=== PATIENT | male | born 1960 | race American Indian/Alaskan Native ===

== ENCOUNTER 2019-01-10 04:50 | Emergency (ER) | payer BC ==
[2019-01-10 04:55] VITALS: BP 166/85
[2019-01-10] MEDS ORDERED: DELTASONE PO ONE (05:14)
[2019-01-10] MEDS ORDERED: TORADOL IM ONE (05:14)
[2019-01-10] MEDS ORDERED: COLCHICINE PO STA (05:22)
[2019-01-10] MEDS ORDERED: INDOCIN PO STA (05:23)
--- NOTE | 2019-01-10 05:33 | Emergency Department Report ---
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 He denies any trauma but states that he began to develop some pain and swelling to the pectoral area after he ate increase amount of red meat and shrimp. Pain is becoming more severe with standing on bending of the foot or touching the area is very sensitive recognized the point she is not able to percussion across the swollen area without causing pain. He reports no numbness or tingling, no chest pain, palpitations, fever, no chills, sweats Location: lower extremity Quality: constant Consistency: constant Improves with: none Associated Symptoms: denies: chest pain, diaphoresis, fever/chills, malaise, nausea/vomiting, rash, syncope, weakness Treatments Prior to Arrival: none - Related Data Previous Rx's Medication Instructions Recorded Last Taken Type Colchicine 0.6 mg PO Q1HR PRN #10 capsule 01/10/19 Unknown Rx Indomethacin [Indocin] 25 mg PO Q8H #14 capsule 01/10/19 Unknown Rx predniSONE [Deltasone] 50 mg PO QDAY #5 tab 01/10/19 Unknown Rx Allergies Allergy/AdvReac Type Severity Reaction Status Date / Time No Known Allergies Allergy Verified 01/10/19 04:55 ED Review of Systems ROS: Stated complaint: RT FOOT SWELLING PAINFUL Other details as noted in HPI Constitutional: denies: chills, fever Eyes: denies: eye pain, eye discharge, vision change ENT: denies: ear pain, throat pain Respiratory: denies: cough, shortness of breath, wheezing Cardiovascular: denies: chest pain, palpitations Endocrine: no symptoms reported Gastrointestinal: denies: abdominal pain, nausea, diarrhea Genitourinary: denies: urgency, dysuria Musculoskeletal: joint swelling, arthralgia. denies: back pain Skin: denies: rash, lesions Neurological: denies: headache, weakness, paresthesias Psychiatric: denies: anxiety, depression Hematological/Lymphatic: denies: easy bleeding, easy bruising ED Past Medical Hx - Past Medical History Previous Medical History?: No - Surgical History Past Surgical History?: Yes Additional Surgical History: left knee - Social History Smoking Status: Current Every Day Smoker Substance Use Type: Alcohol - Medications Home Medications: Home Medications Medication Instructions Recorded Confirmed Last Taken Type Colchicine 0.6 mg PO Q1HR PRN #10 capsule 01/10/19 Unknown Rx Indomethacin [Indocin] 25 mg PO Q8H #14 capsule 01/10/19 Unknown Rx predniSONE [Deltasone] 50 mg PO QDAY #5 tab 01/10/19 Unknown Rx ED Physical Exam - General Limitations: No Limitations General appearance: alert, in no apparent distress - Head Head exam: Present: atraumatic, normocephalic - Eye Eye exam: Present: normal appearance - ENT ENT exam: Present: mucous membranes moist - Neck Neck exam: Present: normal inspection - Respiratory Respiratory exam: Present: normal lung sounds bilaterally. Absent: respiratory distress - Cardiovascular Cardiovascular Exam: Present: regular rate, normal rhythm. Absent: systolic murmur, diastolic murmur, rubs, gallop - GI/Abdominal GI/Abdominal exam: Present: soft, normal bowel sounds - Rectal Rectal exam: Present: deferred - Extremities Exam Extremities exam: Present: normal inspection - Expanded Lower Extremity Exam Right Hip exam: Present: full ROM Upper Leg exam: Present: normal inspection Knee exam: Present: normal inspection Foot/Toe exam: Present: tenderness, swelling, erythema (the base of the right weems llux at the metatarsophalangeal joint. There is some warmth and redness noted. There is swelling second pain with palpation. Pulses 2+2 dorsalis pedis and posterior tibialis. Decreased range of motion due to pain). Absent: abrasion, laceration, deformity, crepidus Neuro vascular tendon exam: Present: no vascular compromise. Absent: pulse deficit, abnormal cap refill, sensory deficit, tendon deficit 1 - Area pain, redness, swelling. No broken skin noticed no discharge noticed - Back Exam Back exam: Present: normal inspection - Neurological Exam Neurological exam: Present: alert, oriented X3 - Psychiatric Psychiatric exam: Present: normal affect, normal mood - Skin Skin exam: Present: warm, dry, intact, normal color. Absent: rash ED Course Vital Signs 01/10/19 04:52 Temperature 97.5 F L Pulse Rate 57 L Respiratory 18 Rate Blood Pressure 166/85 O2 Sat by Pulse 98 Oximetry ED Medical Decision Making - Medical Decision Making 57-year-old male presents with department with what appears to be a gouty flareup.. There is no signs of any trauma. No trauma or reported. M.D. referral therapy in the emergency department with colchicine and Indocin. We'll send him home with a similar regim regimen and and has advised him that he follow up in 2-3 days. Critical care attestation.: If time is entered above; I have spent that time in minutes in the direct care of this critically ill patient, excluding procedure time. ED Disposition Clinical Impression: Podagra Disposition: DC-01 TO HOME OR SELFCARE Is pt being admited?: No Does the pt Need Aspirin: No Condition: Stable Instructions: Acute Gouty Arthritis (ED) Referrals: PRIMARY MD ASHLEY [Primary Care Provider] - 3-5 Days [facility] [Provider Group] - 3-5 Days
== END 2019-01-10 06:00 | disposition home or self-care (01) ==
LOC: ED 04:50
DX: M10.071 Idiopathic gout, right ankle and foot (principal); F17.200 Nicotine dependence, unspecified, uncomplicated; Z79.899 Other long term (current) drug therapy
CPT/HCPCS: 82962; 99283; J1885; J7512

== ENCOUNTER 2020-06-18 04:49 | Emergency (ER) | payer BC ==
[2020-06-18 04:58] VITALS: BP 165/93
[2020-06-18] MEDS ORDERED: dexAMETHasone 20 MG/5 ML VIAL IM ONE (08:38)
[2020-06-18] MEDS ORDERED: COLCHICINE 0.6 MG CAP PO ONE (08:38)
--- NOTE | 2020-06-18 09:11 | Emergency Department Report ---
ED Lower Extremity HPI - General Chief Complaint: Extremity Injury, Lower Stated Complaint: FEET PAIN Time Seen by Provider: 06/18/20 08:37 Source: patient Mode of arrival: Ambulatory Limitations: No Limitations - History of Present Illness Initial Comments: This is a 60-year-old male nontoxic, well nourished in appearance, no acute signs of distress presents to the ED with c/o of acute on chornic intermittent left great toe swelling and pain several days. Patient stated has history of gout and symptoms are similar. Patient denies any injury or trauma trauma. Patient denies any numbness, tingling, fever, chills, nausea, vomiting, chest pain, shortness of breath, headache, stiff neck. Patient denies any joint swelling or joint redness. Patient denies decreased range of motion. Patient stated has decreased gait due to pain. Patient denies any allergies. -: days(s) Injury: Foot: Left Severity scale (0 -10): 8 Improves With: immobilization Worsens With: weight bearing, movement, palpation Associated Symptoms: swelling, able to partially bear weight. denies: snap/pop sensation, numbness, tingling, unable to bear weight - Related Data Previous Rx's Medication Instructions Recorded Last Taken Type Colchicine 0.6 mg PO Q1HR PRN #10 capsule 01/10/19 Unknown Rx Indomethacin [Indocin] 25 mg PO Q8H #14 capsule 01/10/19 Unknown Rx predniSONE [Deltasone] 50 mg PO QDAY #5 tab 01/10/19 Unknown Rx Colchicine 0.6 mg PO DAILY #3 capsule 06/18/20 Unknown Rx Allergies Allergy/AdvReac Type Severity Reaction Status Date / Time No Known Allergies Allergy Verified 01/10/19 04:55 ED Review of Systems ROS: Stated complaint: FEET PAIN Other details as noted in HPI Comment: All other systems reviewed and negative Constitutional: denies: chills, fever Eyes: denies: eye pain, eye discharge, vision change ENT: denies: ear pain, throat pain Respiratory: denies: cough, shortness of breath, wheezing Cardiovascular: denies: chest pain, palpitations Endocrine: no symptoms reported Gastrointestinal: denies: abdominal pain, nausea, diarrhea Genitourinary: denies: urgency, dysuria Musculoskeletal: denies: back pain, joint swelling, arthralgia Skin: denies: rash, lesions Neurological: denies: headache, weakness, paresthesias Psychiatric: denies: anxiety, depression Hematological/Lymphatic: denies: easy bleeding, easy bruising ED Past Medical Hx - Past Medical History Previous Medical History?: Yes - Surgical History Past Surgical History?: Yes Additional Surgical History: left knee - Social History Smoking Status: Current Every Day Smoker Substance Use Type: Alcohol - Medications Home Medications: Home Medications Medication Instructions Recorded Confirmed Last Taken Type Colchicine 0.6 mg PO Q1HR PRN #10 capsule 01/10/19 Unknown Rx Indomethacin [Indocin] 25 mg PO Q8H #14 capsule 01/10/19 Unknown Rx predniSONE [Deltasone] 50 mg PO QDAY #5 tab 01/10/19 Unknown Rx Colchicine 0.6 mg PO DAILY #3 capsule 06/18/20 Unknown Rx ED Physical Exam - General Limitations: No Limitations General appearance: alert, in no apparent distress - Head Head exam: Present: atraumatic, normocephalic - Eye Eye exam: Present: normal appearance - Neck Neck exam: Present: normal inspection, full ROM - Respiratory Respiratory exam: Absent: respiratory distress - Cardiovascular Cardiovascular Exam: Present: regular rate - Extremities Exam Extremities exam: Present: full ROM, tenderness, normal capillary refill. Absent: joint swelling - Expanded Lower Extremity Exam Left Hip exam: Present: normal inspection, full ROM. Absent: tenderness, swelling Upper Leg exam: Present: normal inspection, full ROM. Absent: tenderness, swelling Knee exam: Present: normal inspection, full ROM. Absent: tenderness, swelling Lower Leg exam: Present: normal inspection, full ROM. Absent: tenderness, swelling Ankle exam: Present: normal inspection, full ROM. Absent: tenderness, swelling Foot/Toe exam: Present: normal inspection, full ROM, tenderness, swelling. Absent: abrasion, laceration, ecchymosis, deformity, crepidus, dislocation, erythema, amputation, puncture wound, foreign body, calcaneal tenderness, tenderness at base of 5th metatarsal, nail avulsion, subungual hematoma Neuro vascular tendon exam: Present: no vascular compromise Gait: Positive: observed and normal 1 - Pain and swelling here - Back Exam Back exam: Present: normal inspection, full ROM - Neurological Exam Neurological exam: Present: alert, oriented X3, normal gait - Psychiatric Psychiatric exam: Present: normal affect, normal mood - Skin Skin exam: Present: warm, dry, intact, normal color. Absent: rash ED Course Vital Signs 06/18/20 04:54 Temperature 97.6 F Pulse Rate 77 Respiratory 16 Rate Blood Pressure 165/93 O2 Sat by Pulse 99 Oximetry - Reevaluation(s) Reevaluation #1: 06/18/20 09:11 Patient is speaking in full sentences with no signs of distress noted. ED Lower Extremity MDM - Medical Decision Making This is a 60-year-old male that presents with gout flare. Patient is stable and was examined by me. I patient referred to orthopedic doctor. Patient does have normal gait with no tenderness and no joint swelling. No ecchymosis. no joint redness or swelling. Not warm to touch. No signs of cellulites present. Patient educated on gout and to prevent. Patient was instructed to RICE therapy. Patient received Decadron and colchicine. Patient is discharged with colchicine at time of discharge, the patient does not seem toxic or ill in appearance. No acute signs of distress noted. Patient agrees to discharge treatment plan of care. No further questions noted by the patient. Critical care attestation.: If time is entered above; I have spent that time in minutes in the direct care of this critically ill patient, excluding procedure time. ED Disposition Clinical Impression: Gout Qualifiers: Gout site: toe Gout etiology: unspecified cause Chronicity: acute Laterality: left Qualified Code(s): M10.9 - Gout, unspecified Disposition: TO HOME OR SELFCARE Is pt being admited?: No Does the pt Need Aspirin: No Condition: Stable Instructions: Low-Purine Eating Plan Additional Instructions: Follow-up with a primary care doctor in 3-5 days or if symptoms worsen and continue return to emergency room as soon as possible. Prescriptions: Colchicine 0.6 mg PO DAILY #3 capsule Referrals: PRIMARY CAREMD [Primary Care Provider] - 3-5 Days MARLENI REDMOND MD [Staff Physician] - 3-5 Days Time of Disposition: 09:07
== END 2020-06-18 09:46 | disposition home or self-care (01) ==
LOC: ED 04:49
DX: M10.9 Gout, unspecified (principal); F17.200 Nicotine dependence, unspecified, uncomplicated; Z79.899 Other long term (current) drug therapy
CPT/HCPCS: 96372; 99282; J1100